=== PATIENT | female | born 1995 | race Hispanic/Latino ===

== ENCOUNTER 2018-01-14 10:13 | Emergency (ER) | payer MEDICAID ==
[~2018-01-14 10:13] MED LIST: FERR-82 PO; GUAIF10 GT; PREN1TAB80 PO
[2018-01-14] MEDS ORDERED: CLINDAMYCIN HCL 150 MG CAP ONE (10:25)
[2018-01-14] MEDS ORDERED: ACETAMINOPHEN EXTRA STRENGTH 500 MG TABLET ONE (10:25)
== END 2018-01-14 10:33 | disposition home or self-care (01) ==
LOC: EDH 10:13
DX: K04.7 Periapical abscess without sinus (principal)